=== PATIENT | female | born 1985 | race Caucasian/White ===

== ENCOUNTER 2016-12-25 17:12 | Emergency (ER) | payer OTHER ==
--- NOTE | ~2016-12-25 | CR115 ---
[facility] A Service of [facility] RADIOLOGY TEXT RESULTS PATIENT: KRYSTIAN ANDERSON LOCATION: CFTX : 85 UNIT #: [id number] AGE: [address]: Mis Meade APRN SEX: F ORDER DR: [id number] [facility] [address] [place], [place] [address] [id number] E MR#: [id number] Acc #: [id number] NAME: KRYSTIAN ANDERSON : 1985 SEX: F STUDY DATE/TIME: 12/25/2016 17:28 UNIT: [facility] ROOM: STUDY DESCRIPTION: CR Finger 2 View [address]Th Rt Attending Physician: Mis Meade A.P.R.N. Ordering Physician: Ed Fred Burton M.D. Primary Care Physician: No Primary Care Physician MEDICAL IMAGING REPORT This report is preliminary unless electronic signature is present EXAM Right fifth finger HISTORY Pain swelling and redness for 3 days. FINDINGS 3 views are obtained. The examination shows a fracture involving the base of the distal phalanx of the fifth digit. This does extend intraarticularly. There is overlying soft tissue swelling. CONCLUSION Fracture of the base of the distal phalanx of the fifth digit extending intraarticularly with adjacent soft tissue swelling Dictated by... John Rahman M.D. THIS IS AN ELECTRONICALLY VERIFIED REPORT John Rahman M.D. at 12/26/2016 10:35 AM ROSEANNE/gunjan TD: 12/25/2016 23:14 JOB #: [id number] MEDICAL IMAGING REPORT Page 1 of 1 COPY
[~2016-12-25 17:12] MED LIST: ALPRAZOLAM PO; BACTRIM DS TABL1 TA1 PO; CLEOCIN PO; DIFLUCAN10 MG/ML PO; INDOMETHACIN50 MG PO; KEFLEX125 MG/5 M PO; KETOPROFEN PO; MOTRIN20 MG/ML PO; NO MEDICATIONS; NORCO 5/325 TAB1 TAB PO; SKELAXIN PO; TYLOX1 CAP 5/50 PO
[2016-12-25 17:19] LABS: BASOPHIL# 0.1 X10e3 (0-0.3); BASOPHIL% 0.4 % (0-2.5); EOSINOPHIL# 0.1 X10e3 (0-0.7); EOSINOPHIL% 0.6 % (0.0-7.0); HEMATOCRIT 32.3 % (35.0-45.0); HEMOGLOBIN 10.9 gm/dL (12.0-16.0); LYMPHOCYTE# 1.6 X10e3 (1.0-3.5); LYMPHOCYTE% 12.6 % (17.0-45.0); MEAN CELL VOLUME 91.2 FL (83-96); MEAN CORPUSCULAR HEMOGLOBIN 30.9 PG (28-34); MEAN CORPUSCULAR HGB CONC 33.9 g/dL (30-36); MEAN PLATELET VOLUME 7.8 FL (6.5-11.5); MONOCYTE# 0.7 X10e3 (0-1.0); MONOCYTE% 5.2 % (3.0-12.0); NEUTROPHIL# 10.6 X10e3 (1.5-7.1); NEUTROPHIL% 81.2 % (40-75); PLATELET COUNT 309 X10e3 (140-420); RED BLOOD COUNT 3.54 X10e (3.90-5.30); RED CELL DISTRIBUTION WIDTH 13.4 % (11.0-15.5); WHITE BLOOD COUNT 13.1 X10e3 (4.0-10.5)
[2016-12-25 17:30] LABS: DIFF IND NO
[2016-12-25 17:32] LABS: AMPHETAMINE POS (NEG); BARBITURATES NEG (NEG); BENZODIAZEPINES NEG (NEG); COCAINE POS (NEG); MARIJUANA POS (NEG); OPIATES POS (NEG); TRICYCLIC ANTIDEPRESSANTS NEG (NEG); U METHADONE NEG (NEG)
[2016-12-25 17:41] LABS: BLOOD UREA NITROGEN 9 mg/dL (9-23); CALCIUM SERUM 8.9 mg/dL (8.4-10.2); CARBON DIOXIDE 26 mmol/L (22-31); CHLORIDE 102 mmol/L (100-111); CREATININE SERUM 0.5 mg/dL (0.6-1.4); GLOM FILT RATE Estimated ABOVE60 mL/min (>60); GLUCOSE FASTING 109 mg/dL (70-110); POTASSIUM 3.8 mmol/L (3.5-5.1); SODIUM 136 mmol/L (135-145)
== END 2016-12-25 20:00 | disposition short-term general hospital (02) ==
LOC: CFTX 17:12
PROVIDERS: Nurse Practitioner
DX: S62.636A Displaced fracture of distal phalanx of right little finger, initial encounter for closed fracture (principal); Z33.1 Pregnant state, incidental; D64.9 Anemia, unspecified; L03.011 Cellulitis of right finger; F19.10 Other psychoactive substance abuse, uncomplicated; F17.210 Nicotine dependence, cigarettes, uncomplicated; Z88.0 Allergy status to penicillin
CPT/HCPCS: 36415; 73140; 80048; 80307; 84703; 85025; 96361; 96374; 99285; J2405